=== PATIENT | female | born 1945 | race African-American/Black ===

== ENCOUNTER 2018-08-26 11:07 | Emergency (ER) | END 2018-08-26 12:44 | disposition home or self-care (01) ==

== ENCOUNTER 2018-12-18 03:24 | Observation (INO) | payer MEDICARE, OTHER ==
[~2018-12-18] VITALS: Ht 162.6 cm; Wt 82.0 kg
[2018-12-18] VITALS (8 sets, daily range): BP systolic 121–140; BP diastolic 67–79; PULSE 85–94; RESP 18; Ht 162.6 cm; Wt 82.0 kg
[~2018-12-18 03:24] MED LIST: DICL100G37 TOP; KETO10TA PO
--- NOTE | 2018-12-18 03:32 | ERD ---
ER Documentation Chief Complaint Chief Complaint HPI 73-year-old female brought in for chest pain radiating to left arm, ongoing for the last 4 hours prior to arrival. Pain is constant, is nonexertional, she denies shortness of breath, she has not had leg swelling or hemoptysis. She has no history of DVT or PE. She denies numbness. She has a history of diabetes. ROS All systems reviewed and are negative except as per history of present illness. Medications Home Meds Reported Medications Tretinoin* (Tretinoin* Cream) 0.1% - 20 Gm Cream..g., 20 GM TOPICAL DAILY for 30 Days 12/18/18 Cyclosporine (RESTASIS) 1 Each Droperette, 1 DROP BOTH EYES DAILY for 90 Days, #180 12/18/18 Insulin Degludec (Tresiba Flextouch U-100) 100 Unit/1 Ml Insuln.pen, 50 UNITS SQ DAILY for 30 Days 12/18/18 Liraglutide (Victoza 3-Shaka) 0.6 Mg/0.1 Ml Pen.injctr, 1.2 ML INJ DAILY 12/18/18 Salmeterol Xinaf/Fluticasone* (Advair*) 250-50 Diskus Inhaler, INH for 90 Days, #180 12/18/18 Montelukast Sodium* (Montelukast Sodium*) 10 Mg Tablet, 10 MG PO DAILY for 30 Days, #30 12/18/18 Insulin Lispro (Humalog Kwikpen U-100) 100 Unit/1 Ml Insuln.pen, 22 UNITS SQ TID for 68 Days 12/18/18 Atorvastatin (Atorvastatin) 10 Mg Tablet, 10 MG PO QAM for 90 Days, #90 12/18/18 Glimepiride* (Glimepiride*) 2 Mg Tablet, 2 MG PO DAILY for 90 Days, #90 12/18/18 Metoprolol Tartrate* (Lopressor*) 50 Mg Tab, 50 MG PO BID for 90 Days, #180 12/18/18 Discontinued Scripts Ketorolac Tromethamine* (Ketorolac Tromethamine*) 10 Mg Tablet, 10 MG PO TID, #15 TAB Prov:MELISSA LEOS PA-C 08/26/18 Diclofenac Sodium* (Voltaren* Gel) 1% -100 Gm Gel, 2 GM TOP TID, #1 TUB Prov:MELISSA LEOS PA-C 08/26/18 Allergies Allergies: Coded Allergies: codeine (Unverified Allergy, Severe, hives; sob, 12/18/18) Sulfa (Sulfonamide Antibiotics) (Unverified Allergy, Unknown, hives, 12/18/18) Tetanus Vaccines and Toxoid (Unverified Allergy, Unknown, hives, 12/18/18) azithromycin (Unverified Allergy, Unknown, hives, 12/18/18) cortisone (Unverified Allergy, Unknown, hives, 12/18/18) PMhx/Soc History of Surgery: Yes (Carpal tunnel sx) Hx Neurological Disorder: Yes (Fibromyalgia) Hx Miscellaneous Medical Probl: Yes (DM,RSD,Sciatica,Fibromyalgia) Hx Alcohol Use: No Hx Substance Use: No Hx Tobacco Use: No Physical Exam Vitals Vital Signs Date Temp Pulse Resp B/P (MAP) Pulse Ox O2 O2 Flow FiO2 Time Delivery Rate 12/18/18 98.6 102 14 133/70 98 04:02 (91) Physical Exam Const: Well-appearing, elderly appearing female. Head: Atraumatic Eyes: Normal Conjunctiva ENT: Normal External Ears, Nose and Mouth. Neck: Full range of motion. No meningismus. Resp: Clear to auscultation bilaterally Cardio: Regular rate and rhythm, no murmurs Abd: Soft, non tender, non distended. Normal bowel sounds Skin: No petechiae or rashes Back: No midline or flank tenderness Ext: No cyanosis, or edema Neur: Awake and alert Psych: Normal Mood and Affect Result Diagram: 12/18/18 0338 12/18/18 0338 Results 24 hrs Laboratory Tests Test 12/18/18 03:38 White Blood Count 5.2 10^3/ul Red Blood Count 5.56 10^6/ul Hemoglobin 12.3 g/dl Hematocrit 39.4 % Mean Corpuscular Volume 70.9 fl Mean Corpuscular Hemoglobin 22.1 pg Mean Corpuscular Hemoglobin Concent 31.2 g/dl Red Cell Distribution Width 13.9 % Platelet Count 141 10^3/UL Mean Platelet Volume 12.1 fl Immature Granulocytes % 0.200 % Neutrophils % % Lymphocytes % % Monocytes % % Eosinophils % % Basophils % % Nucleated Red Blood Cells % 0.0 /100WBC Immature Granulocytes # 0.010 10^3/ul Neutrophils # 10^3/ul Lymphocytes # 10^3/ul Monocytes # 10^3/ul Eosinophils # 10^3/ul Basophils # 10^3/ul Nucleated Red Blood Cells # 10^3/ul Prothrombin Time 11.7 Sec Prothrombin Time Ratio 0.9 INR International Normalized Ratio 0.85 Sodium Level 142 mmol/L Potassium Level 3.9 mmol/L Chloride Level 108 mmol/L Carbon Dioxide Level 25 mmol/L Anion Gap 9 Blood Urea Nitrogen 12 mg/dl Creatinine 0.77 mg/dl Est Glomerular Filtrat Rate mL/min mL/min Glucose Level 344 mg/dl Calcium Level 10.3 mg/dl Total Bilirubin 0.2 mg/dl Direct Bilirubin 0.00 mg/dl Indirect Bilirubin 0.2 mg/dl Aspartate Amino Transf (AST/SGOT) 48 IU/L Alanine Aminotransferase (ALT/SGPT) 68 IU/L Alkaline Phosphatase 198 IU/L Troponin I < 0.012 ng/ml B-Type Natriuretic Peptide 35 PG/ML Total Protein 7.7 g/dl Albumin 4.2 g/dl Globulin 3.50 g/dl Albumin/Globulin Ratio 1.20 Lipase 214 U/L Current Medications Medications Dose Sig/Nuha Start Time Status Last (Trade) Ordered Route PRN Stop Time Admin Dose Reason Admin Morphine 4 mg ONCE STAT 12/18/18 DC Sulfate IV 05:04 (morphine) 12/18/18 05:05 Ondansetron 4 mg ONCE STAT 12/18/18 DC HCl (Zofran IV 05:04 Inj) 12/18/18 05:05 Procedures/MDM This 73-year-old female presents for evaluation of chest pain. Patient was given aspirin, 325 mg, as well as nitroglycerin in the field. She was given morphine and Zofran in the ED, her EKG does not show any evidence of acute ischemia, troponin was negative, her chest x-ray was unremarkable, given her age and risk factors, she will be admitted to telemetry observation for further workup. Discussed case with Dr. Cheatham, patient will be admitted to Dr. Baeza EKG: Rate/Rhythm: Sinus tachycardia QRS, ST, T-waves: No changes consistent w/ acute ischemia Impression: No evidence of ischemia or arrhythmia Departure Diagnosis: Primary Impression: Chest pain Chest pain type: unspecified Qualified Codes: R07.9 - Chest pain, unspecified Condition: Stable ZACK DODSON MD Dec 18, 2018 03:32
[2018-12-18] MEDS ORDERED: ONDANSETRON 4 MG INJ IV STA ×2 (05:04→06:51)
[2018-12-18] MEDS ORDERED: morphine 4 MG/ML VIAL IV STA (05:04)
[2018-12-18] MEDS ORDERED: METO-429 PO (05:13)
[2018-12-18] MEDS ORDERED: CYCL1DRO BOTH EYES (05:13)
[2018-12-18] MEDS ORDERED: LIRA0.6P2 INJ (05:13)
[2018-12-18] MEDS ORDERED: MONT10TA24 PO (05:13)
[2018-12-18] MEDS ORDERED: GLIM2TAB PO (05:13)
[2018-12-18] MEDS ORDERED: ADV25050 INH (05:13)
[2018-12-18] MEDS ORDERED: INSU100I31 SQ (05:13)
[2018-12-18] MEDS ORDERED: INSU100I12 SQ (05:13)
[2018-12-18] MEDS ORDERED: TRET20CR14 TOPICAL (05:13)
[2018-12-18] MEDS ORDERED: ATOR10TA65 PO (05:13)
[2018-12-18] MEDS ORDERED: morphine 2 MG INJ IV STA (06:51)
--- NOTE | 2018-12-18 11:48 | HP ---
Date/Time of Note Date/Time of Note DATE: 12/18/18 TIME: 11:48 Assessment/Plan VTE Prophylaxis SCD applied (from Nsg): Yes Pharmacological prophylaxis: LMWH Lines/Catheters IV Catheter Type (from Nrsg): Saline Lock Assessment/Plan Hospital Course SUBJECTIVE: Lying in bed comfortably. No chest pain, palpitation, shortness of breath, diaphoresis, nausea, vomiting, diarrhea, fever, chills or other constitutional symptoms. OBJECTIVE: Vital signs-see below PHYSICAL EXAM: Constitutional: Well-developed, adequately built -[place] female, lying in bed comfortably. Psych: nl mood/affect, no complaints Head: atraumatic, normocephalic Eyes: nl conjunctiva, nl sclera ENMT: mucosa pink and moist, nl external ears & nose Neck: non-tender, supple Respiratory: clear to auscultation, normal air movement Cardiovascular: nl pulses, regular rate and rhythm Gastrointestinal: non-tender, soft, bowel sounds active in all 4 quadrants. Musculoskeletal/extremities: nl extremities to inspection, motor strength equal bilaterally, no focal deficit. Normal pulses,no cyanosis, no edema. Neurological: Alert oriented 3,nl speech, nl strength Skin: nl turgor ASSESSMENT/PLAN: 73-year-old AA female w/CAD/stent, DMII, dyslipidemia, here with chest pain radiating to left arm, acid reflux, dizziness woke her up from bed in the morning. 1. Chest pain w/radiation/dizziness/ Acid reflux -Patient symptomatology is also concerning for GI etiology of chest discomfort. However, in light of her comorbidities, we will do a complete ACS workup with 3 sets of troponin, repeat EKG and a 2D echocardiogram. We will also consult cardiology. -Aspirin prophylaxis, PRN nitroglycerin, H2 blockers. -Obtain carotid venous duplex in light of dizziness reported. 2. Coronary artery disease, reported history of stent. -Aspirin/statin, resume beta-blockers 3. Hypertension -Resume beta-blockers 4. Dyslipidemia -On statin 5. Obesity with BMI 31 -Weight reduction advised. Follow-up lipid panel and A1c 6. Type 2 diabetes -Patient with hyperglycemia. Will start Accu-Cheks/ISS/pre-meal/Lantus insulin. -Follow-up A1c 7. Microcytic indicis with stable H&H -Obtain iron/ferritin panel. DVT prophylaxis: Lovenox PUD prophylaxis: H2 blockers CODE STATUS: Full code Diet: Carbohydrate controlled/low-cholesterol diet. Rest of the management depend on hospital course. Approximately 60 m spent on this history and physical. Patient was seen in collaboration with . Result Diagram: 12/18/18 0338 12/18/18 0338 Results 24hrs Laboratory Tests Test 12/18/18 03:38 12/18/18 09:19 White Blood Count 5.2 Red Blood Count 5.56 H Hemoglobin 12.3 Hematocrit 39.4 Mean Corpuscular Volume 70.9 L Mean Corpuscular Hemoglobin 22.1 L Mean Corpuscular Hemoglobin Concent 31.2 L Red Cell Distribution Width 13.9 Platelet Count 141 Mean Platelet Volume 12.1 H Immature Granulocytes % 0.200 Neutrophils % 35.2 L Lymphocytes % 52.1 H Monocytes % 8.8 Eosinophils % 2.9 Basophils % 0.8 Nucleated Red Blood Cells % 0.0 Immature Granulocytes # 0.010 Neutrophils # 1.8 Lymphocytes # 2.7 Monocytes # 0.5 Eosinophils # 0.2 Basophils # 0.0 Nucleated Red Blood Cells # 0.0 Prothrombin Time 11.7 L Prothrombin Time Ratio 0.9 INR International Normalized Ratio 0.85 Sodium Level 142 Potassium Level 3.9 Chloride Level 108 Carbon Dioxide Level 25 Anion Gap 9 Blood Urea Nitrogen 12 Creatinine 0.77 Est Glomerular Filtrat Rate mL/min Glucose Level 344 H Calcium Level 10.3 H Total Bilirubin 0.2 Direct Bilirubin 0.00 Indirect Bilirubin 0.2 Aspartate Amino Transf (AST/SGOT) 48 H Alanine Aminotransferase (ALT/SGPT) 68 Alkaline Phosphatase 198 H Troponin I < 0.012 B-Type Natriuretic Peptide 35 Total Protein 7.7 Albumin 4.2 Globulin 3.50 H Albumin/Globulin Ratio 1.20 Lipase 214 Bedside Glucose 255 H HPI/ROS Admit Date/Time Admit Date/Time Dec 18, 2018 at 04:57 Hx of Present Illness 73-year-old -[place] male with a history of dyslipidemia, coronary artery disease, status post stent, type 2 diabetes, asthma, was brought in by EMS to the emergency room with chest pain radiating to left associated with dizziness, acid reflux, nausea and urge to have a bowel movement. Apparently, patient symptoms started at night. According to patient, she had chicken Alvaro for dinner and did not eat anything spicy. Patient denied loss of consciousness, speech difficulties, vision changes, focal deficit, numbness, tingling, vomiting, fever, chills or other constitutional symptoms. In the ER, patient was noted with stable labs except for blood glucose 344, mildly elevated AST 48, alkaline phosphatase 198. Initial troponin negative. EKG sinus tach 110, with no ST or T wave changes. Patient was given morphine sulfate 2 mg in the emergency room. She was also given a dose of Zofran. Her symptoms completely resolved. ROS A 12 point review of system was assessed and is negative other than what is mentioned in the HPI PMH/Family/Social Past Medical History See HPI Coded Allergies: codeine (Unverified Allergy, Severe, hives; sob, 12/18/18) Sulfa (Sulfonamide Antibiotics) (Unverified Allergy, Unknown, hives, 12/18/18) Tetanus Vaccines and Toxoid (Unverified Allergy, Unknown, hives, 12/18/18) azithromycin (Unverified Allergy, Unknown, hives, 12/18/18) cortisone (Unverified Allergy, Unknown, hives, 12/18/18) Past Surgical History See HPI Social History Denied history of alcohol, smoking or illicit drug use. Smoking Status: Never smoker Exam/Review of Systems Vital Signs Vitals Vital Signs Date Temp Pulse Resp B/P (MAP) Pulse Ox O2 O2 Flow FiO2 Time Delivery Rate 12/18/18 93 10:39 12/18/18 98.1 18 132/67 95 Room Air 10:37 (88) SANTY ANNAD NP Dec 18, 2018 11:48
[2018-12-18] MEDS ORDERED: ACETAMINOPHEN 325 MG TAB PO PRN (12:00)
[2018-12-18] MEDS ORDERED: NACL 0.9% 3 ML SYG IV SCH (12:00)
[2018-12-18] MEDS ORDERED: DOCUSATE SODIUM 100 MG CAP PO PRN (12:00)
[2018-12-18] MEDS ORDERED: ONDANSETRON 4 MG INJ IV PRN (12:00)
[2018-12-18] MEDS ORDERED: NITROGLYCERIN (SL) 0.4 MG TAB SL PRN (12:00)
[2018-12-18] MEDS ORDERED: morphine 2 MG INJ IV PRN (12:00)
[2018-12-18] MEDS ORDERED: DIPHENHYDRAMINE 50 MG CAP PO PRN (12:30)
[2018-12-18] MEDS ORDERED: ALBUTEROL 0.083% (NEB) 2.5 MG/3 ML AMP HHN PRN (13:00)
[2018-12-18] MEDS ORDERED: GLUCOSE GEL 15 GRAM TUBE PO PRN ×2 (13:30)
[2018-12-18] MEDS ORDERED: GLUCAGON 1 MG INJ IM PRN (13:30)
[2018-12-18] MEDS ORDERED: GLUCOSE GEL 15 GRAM TUBE BUCCAL PRN (13:30)
[2018-12-18] MEDS ORDERED: DEXTROSE 50% 50 ML SYRINGE IV PRN ×2 (13:30)
[2018-12-18] MEDS: METOPROLOL 50 MG TAB PO SCH ×2 (13:51→21:03)
[2018-12-18] MEDS: FAMOTIDINE 20 MG TAB PO SCH (13:51)
[2018-12-18] MEDS: ATORVASTATIN 10 MG TAB PO SCH (13:51)
[2018-12-18] MEDS: ASPIRIN 81 MG TAB PO SCH (13:51)
[2018-12-18] MEDS: CYCLOSPORINE 0.05% OPH DROPERETTE BOTH EYES SCH (13:58)
[2018-12-18] MEDS: FLUTICASONE/VILANTEROL 200-25 INH DEVICE INH SCH (14:00)
[2018-12-18] MEDS ORDERED: INSULIN GLARGINE [LANTus] (100 UNITS/ML) SYG SC SCH (14:00)
--- NOTE | 2018-12-18 14:05 | RADRPT ---
Echocardiogram Report Patient Name: DIDIER AGUILARPatient ID: [id number] : 1945 (73y 11m)Study Date: 12/18/2018 12:00:58 PM Gender: FAccession #: [id number] Tech: Christine [facility] Location: 521 Ref.Physician: SANTY ANAND Height(Cm): BSA: Weight(Kg): Quality: AdequateAccount #: Procedures: Echocardiographic Report: Transthoracic echocardiogram with complete 2D, M-Mode, and doppler examination. Indications: Chest Pain. Measurements: 2D/M Mode Doppler Measurement Value Normal Range Measurement Value Normal Range LVIDd 2D 3.5 [ 3.8 - 5.2 ] cm AV Peak Samy 1.4 [ 100.0 - 170.0 ] cm/sec LVIDs 2D 2.2 [ 2.2 - 3.5 ] cm AV Peak PG 8.0 [ 2.0 - 9.0 ] mmHg LVPWd 2D 1.0 [ 0.6 - 0.9 ] cm LVOT Peak Samy 1.3 [ 70.0 - 110.0 ] cm/sec IVSd 2D 1.6 [ 0.6 - 0.9 ] cm LVOT Peak PG 7.0 [ 2.0 - 6.0 ] mmHg AoR Diam 2D 2.8 [ 2.3 - 3.1 ] cm MV E Peak Samy 0.7 [ 60.0 - 130.0 ] cm/sec EDV 2D 50.2 [ 46.0 - 106.0 ] ml MV A Peak Samy 1.1 [ 100.0 - 120.0 ] cm/sec ESV 2D 15.5 [ 14.0 - 42.0 ] ml MV E/A 0.6 [ 0.8 - 1.5 ] ratio EF 2D 69.1 [ 54.0 - 74.0 ] percent MV Decel Time 176 [ 104 - 258 ] msec LA Dimen 2D 3.1 [ 2.7 - 3.8 ] cm Lat E` Samy 0.1 [ 10.0 - 15.0 ] cm/sec Lateral E/E` 8.7 [ 1.0 - 2.0 ] ratio Med E` Samy 0.1 cm/sec MV E/A 0.6 [ 0.8 - 1.5 ] ratio TR Peak Samy 2.1 [ 100.0 - 280.0 ] cm/sec TR Peak PG 18.0 mmHg RVSP 26.0 [ 10.0 - 36.0 ] mmHg Findings: Left Ventricle: Hyperdynamic left ventricular systolic function. Normal left ventricular cavity size. Severe asymmetric septal hypertrophy. Ejection fraction is visually estimated at 70 %. Tissue Doppler/Mitral Doppler indices are consistent with impaired relaxation (Stage I diastolic dysfunction). Right Ventricle: Normal right ventricular size. Normal right ventricular systolic function. Left Atrium: The left atrium is normal in size. Right Atrium: The right atrium is normal in size. Mitral Valve: Mild mitral leaflet calcification. Mild mitral annular calcification. Trace mitral regurgitation. Aortic Valve: No significant aortic stenosis or insufficiency. Aortic cusps appear mildly calcified. Tricuspid Valve: Normal appearance of the tricuspid valve. Estimated peak PA systolic pressure 26 mmHg. There is trace tricuspid regurgitation. Pericardium: Normal pericardium with no significant pericardial effusion. Aorta: Normal aortic root. IVC: Normal size with poor respiratory collapse consistent with elevated right atrial pressure. Conclusions: Hyperdynamic left ventricular systolic function. Normal left ventricular cavity size. Severe asymmetric septal hypertrophy. Ejection fraction is visually estimated at 70 %. Tissue Doppler/Mitral Doppler indices are consistent with impaired relaxation (Stage I diastolic dysfunction). Normal size with poor respiratory collapse consistent with elevated right atrial pressure. Electronically Signed By: Demarco Sneed 2018-12-18 14:05:12 PST
--- NOTE | 2018-12-18 14:28 | CONS ---
Assessment/Plan Assessment/Plan Hospital Course (Demo Recall) atypical chest pain EKG no ST changes Echo normal wall motion Troponin negative x 2 possibly MSK component as some reproducible chest pain on palpation monitor overnight if no recurrent sx would recommend outpatient follow up Consultation Date/Type/Reason Admit Date/Time Dec 18, 2018 at 04:57 Date of Consultation: Dec 18, 2018 Type of Consult Cardiology Date/Time of Note DATE: 12/18/18 TIME: 14:23 Hx of Present Illness 73 year old woman with hx of PCI in 2011 and Dm has been experiencing sharp chest pain for several days. On evening of admission awoke with 10/10 sharp pain radiating down arm and leg lasting 4-5 hrs before presentation. Resolved IN ER Has not had any symptoms while walking recently. Constitutional: no complaints, improved Cardiovascular: chest pain (as per HPI) Gastrointestinal: no complaints Past Medical History Home Meds Reported Medications Tretinoin* (Tretinoin* Cream) 0.1% - 20 Gm Cream..g., 20 GM TOPICAL DAILY for 30 Days 12/18/18 Cyclosporine (RESTASIS) 1 Each Droperette, 1 DROP BOTH EYES DAILY for 90 Days, # 180 12/18/18 Insulin Degludec (Tresiba Flextouch U-100) 100 Unit/1 Ml Insuln.pen, 50 UNITS SQ DAILY for 30 Days 12/18/18 Liraglutide (Victoza 3-Shaka) 0.6 Mg/0.1 Ml Pen.injctr, 1.2 ML INJ DAILY 12/18/18 Salmeterol Xinaf/Fluticasone* (Advair*) 250-50 Diskus Inhaler, INH for 90 Days, #180 12/18/18 Montelukast Sodium* (Montelukast Sodium*) 10 Mg Tablet, 10 MG PO DAILY for 30 Days, #30 12/18/18 Insulin Lispro (Humalog Kwikpen U-100) 100 Unit/1 Ml Insuln.pen, 22 UNITS SQ TID for 68 Days 12/18/18 Atorvastatin (Atorvastatin) 10 Mg Tablet, 10 MG PO QAM for 90 Days, #90 12/18/18 Glimepiride* (Glimepiride*) 2 Mg Tablet, 2 MG PO DAILY for 90 Days, #90 12/18/18 Metoprolol Tartrate* (Lopressor*) 50 Mg Tab, 50 MG PO BID for 90 Days, #180 12/18/18 Discontinued Scripts Ketorolac Tromethamine* (Ketorolac Tromethamine*) 10 Mg Tablet, 10 MG PO TID, #15 TAB Prov:MELISSA LEOS PA-C 08/26/18 Diclofenac Sodium* (Voltaren* Gel) 1% -100 Gm Gel, 2 GM TOP TID, #1 TUB Prov:MELISSA LEOS PA-C 08/26/18 Medications Current Medications IV Flush (NS 3 ml) 3 ml PER PROTOCOL IV ; Start 12/18/18 at 12:00 Ondansetron HCl (Zofran Inj) 4 mg Q6H PRN IV NAUSEA/VOMITING; Start 12/18/18 at 12:00 Acetaminophen (Tylenol Tab) 650 mg Q6H PRN PO .PAIN 1-3 OR TEMP; Start 12/18/18 at 12:00 Morphine Sulfate (morphine) 2 mg Q4H PRN IV .SEVERE PAIN 7-10; Start 12/18/18 a t 12:00 Docusate Sodium (Colace) 100 mg Q12H PRN PO .CONSTIPATION; Start 12/18/18 at 12:00 Famotidine (Pepcid) 20 mg DAILY PO Last administered on 12/18/18at 13:51; Admin Dose 20 MG; Start 12/18/18 at 12:00 Enoxaparin Sodium (Lovenox) 40 mg DAILY SC ; Start 12/19/18 at 09:00 Aspirin (Aspirin) 81 mg DAILY PO Last administered on 12/18/18at 13:51; Admin Dose 81 MG; Start 12/18/18 at 12:00 Nitroglycerin (Nitroglycerin (Sl Tab) 0.4 Mg) 1 tab Q5M PRN SL ANGINA; Start 12/18/18 at 12:00 Diphenhydramine HCl (Benadryl) 50 mg Q6H PRN PO ITCHING Last administered on 12/18/18at 13:51; Admin Dose 50 MG; Start 12/18/18 at 12:30 Atorvastatin Calcium (Lipitor) 10 mg QAM PO Last administered on 12/18/18at 13:51; Admin Dose 10 MG; Start 12/18/18 at 13:00 Cyclosporine (Restasis) 1 drop DAILY BOTH EYES Last administered on 12/18/18at 13:58; Admin Dose 1 DROP; Start 12/18/18 at 14:00 Metoprolol Tartrate (Lopressor) 50 mg BID PO Last administered on 12/18/18at 13:51; Admin Dose 50 MG; Start 12/18/18 at 13:00 Montelukast Sodium (Singulair) 10 mg QHS PO ; Start 12/18/18 at 21:00 Fluticasone/ Vilanterol (Breo Ellipta 200-25 Mcg Inh) 1 inh DAILY INH ; Start 12/18/18 at 14:00 Albuterol (Proventil 0.083% (Neb)) 2.5 mg Q4H RESP THERAPY PRN HHN SHORTNESS OF BREATH; Start 12/18/18 at 13:00 Diagnostic Test (Pha) (Accu-Chek) 1 ea 02 XX ; Start 12/19/18 at 02:00 Insulin Glargine (Lantus) 25 units DAILY@0800 SC ; Start 12/18/18 at 14:00 Insulin Aspart (Novolog Insulin Pen) 8 unit WITH MEALS SC ; Start 12/18/18 at 17:55 Insulin Aspart (Novolog Insulin Pen) NOVOLOG *MILD* ALGORITHM WITH MEALS BEDTIME SC ; Start 12/18/18 at 17:55 Miscellaneous Information 1 ea NOTE XX ; Start 12/18/18 at 13:30 Glucose (Glutose) 15 gm Q15M PRN PO DECREASED GLUCOSE; Start 12/18/18 at 13:30 Glucose (Glutose) 22.5 gm Q15M PRN PO DECREASED GLUCOSE; Start 12/18/18 at 13:30 Dextrose (D50w Syringe) 25 ml Q15M PRN IV DECREASED GLUCOSE; Start 12/18/18 at 13:30 Dextrose (D50w Syringe) 50 ml Q15M PRN IV DECREASED GLUCOSE; Start 12/18/18 at 13:30 Glucagon (Glucagen) 1 mg Q15M PRN IM DECREASED GLUCOSE; Start 12/18/18 at 13:30 Glucose (Glutose) 15 gm Q15M PRN BUCCAL DECREASED GLUCOSE; Start 12/18/18 at 13:30 Allergies: Coded Allergies: codeine (Unverified Allergy, Severe, hives; sob, 12/18/18) Sulfa (Sulfonamide Antibiotics) (Unverified Allergy, Unknown, hives, 2/15/19) Tetanus Vaccines and Toxoid (Unverified Allergy, Unknown, hives, 12/18/18) azithromycin (Unverified Allergy, Unknown, hives, 12/18/18) cortisone (Unverified Allergy, Unknown, hives, 12/18/18) Social History Smoking Status: Never smoker Exam/Review of Systems Exam Vitals Vital Signs Date Temp Pulse Resp B/P (MAP) Pulse Ox O2 O2 Flow FiO2 Time Delivery Rate 12/18/18 92 13:04 12/18/18 98.1 18 132/67 95 Room Air 10:37 (88) Constitutional: alert, oriented Respiratory: clear to auscultation Cardiovascular: regular rate and rhythm (reproducible chest pain on plapation) Gastrointestinal: soft Musculoskeletal: nl extremities to inspection Results Result Diagram: 12/18/18 0338 12/18/18 0338 Results 24hrs Laboratory Tests Test 12/18/18 03:38 12/18/18 09:19 12/18/18 12:09 White Blood Count 5.2 Red Blood Count 5.56 H Hemoglobin 12.3 Hematocrit 39.4 Mean Corpuscular Volume 70.9 L Mean Corpuscular Hemoglobin 22.1 L Mean Corpuscular Hemoglobin Concent 31.2 L Red Cell Distribution Width 13.9 Platelet Count 141 Mean Platelet Volume 12.1 H Immature Granulocytes % 0.200 Neutrophils % 35.2 L Lymphocytes % 52.1 H Monocytes % 8.8 Eosinophils % 2.9 Basophils % 0.8 Nucleated Red Blood Cells % 0.0 Immature Granulocytes # 0.010 Neutrophils # 1.8 Lymphocytes # 2.7 Monocytes # 0.5 Eosinophils # 0.2 Basophils # 0.0 Nucleated Red Blood Cells # 0.0 Prothrombin Time 11.7 L Prothrombin Time Ratio 0.9 INR International Normalized Ratio 0.85 Sodium Level 142 Potassium Level 3.9 Chloride Level 108 Carbon Dioxide Level 25 Anion Gap 9 Blood Urea Nitrogen 12 Creatinine 0.77 Est Glomerular Filtrat Rate mL/min Glucose Level 344 H Calcium Level 10.3 H Total Bilirubin 0.2 Direct Bilirubin 0.00 Indirect Bilirubin 0.2 Aspartate Amino Transf (AST/SGOT) 48 H Alanine Aminotransferase (ALT/SGPT) 68 Alkaline Phosphatase 198 H Troponin I < 0.012 < 0.012 B-Type Natriuretic Peptide 35 Total Protein 7.7 Albumin 4.2 Globulin 3.50 H Albumin/Globulin Ratio 1.20 Lipase 214 Bedside Glucose 255 H Creatine Kinase 78 Creatine Kinase Index 0.5 Creatinine Kinase MB (Mass) 0.42 Medications Medication Current Medications IV Flush (NS 3 ml) 3 ml PER PROTOCOL IV ; Start 12/18/18 at 12:00 Ondansetron HCl (Zofran Inj) 4 mg Q6H PRN IV NAUSEA/VOMITING; Start 12/18/18 at 12:00 Acetaminophen (Tylenol Tab) 650 mg Q6H PRN PO .PAIN 1-3 OR TEMP; Start 12/18/18 at 12:00 Morphine Sulfate (morphine) 2 mg Q4H PRN IV .SEVERE PAIN 7-10; Start 12/18/18 at 12:00 Docusate Sodium (Colace) 100 mg Q12H PRN PO .CONSTIPATION; Start 12/18/18 at 12:00 Famotidine (Pepcid) 20 mg DAILY PO Last administered on 12/18/18at 13:51; Admin Dose 20 MG; Start 12/18/18 at 12:00 Enoxaparin Sodium (Lovenox) 40 mg DAILY SC ; Start 12/19/18 at 09:00 Aspirin (Aspirin) 81 mg DAILY PO Last administered on 12/18/18 13:51; Admin Dose 81 MG; Start 12/18/18 at 12:00 Nitroglycerin (Nitroglycerin (Sl Tab) 0.4 Mg) 1 tab Q5M PRN SL ANGINA; Start 12/18/18 at 12:00 Diphenhydramine HCl (Benadryl) 50 mg Q6H PRN PO ITCHING Last administered on 12/18/18 13:51; Admin Dose 50 MG; Start 12/18/18 at 12:30 Atorvastatin Calcium (Lipitor) 10 mg QAM PO Last administered on 12/18/18 13:51; Admin Dose 10 MG; Start 12/18/18 at 13:00 Cyclosporine (Restasis) 1 drop DAILY BOTH EYES Last administered on 12/18/18 13:58; Admin Dose 1 DROP; Start 12/18/18 at 14:00 Metoprolol Tartrate (Lopressor) 50 mg BID PO Last administered on 12/18/18 13:51; Admin Dose 50 MG; Start 12/18/18 at 13:00 Montelukast Sodium (Singulair) 10 mg QHS PO ; Start 12/18/18 at 21:00 Fluticasone/ Vilanterol (Breo Ellipta 200-25 Mcg Inh) 1 inh DAILY INH ; Start 12/18/18 at 14:00 Albuterol (Proventil 0.083% (Neb)) 2.5 mg Q4H RESP THERAPY PRN HHN SHORTNESS OF BREATH; Start 12/18/18 at 13:00 Diagnostic Test (Pha) (Accu-Chek) 1 ea 02 XX ; Start 12/19/18 at 02:00 Insulin Glargine (Lantus) 25 units DAILY@0800 SC ; Start 12/18/18 at 14:00 Insulin Aspart (Novolog Insulin Pen) 8 unit WITH MEALS SC ; Start 12/18/18 at 17:55 Insulin Aspart (Novolog Insulin Pen) NOVOLOG *MILD* ALGORITHM WITH MEALS BEDTIME SC ; Start 12/18/18 at 17:55 Miscellaneous Information 1 ea NOTE XX ; Start 12/18/18 at 13:30 Glucose (Glutose) 15 gm Q15M PRN PO DECREASED GLUCOSE; Start 12/18/18 at 13:30 Glucose (Glutose) 22.5 gm Q15M PRN PO DECREASED GLUCOSE; Start 12/18/18 at 13:30 Dextrose (D50w Syringe) 25 ml Q15M PRN IV DECREASED GLUCOSE; Start 12/18/18 at 13:30 Dextrose (D50w Syringe) 50 ml Q15M PRN IV DECREASED GLUCOSE; Start 12/18/18 at 13:30 Glucagon (Glucagen) 1 mg Q15M PRN IM DECREASED GLUCOSE; Start 12/18/18 at 13:30 Glucose (Glutose) 15 gm Q15M PRN BUCCAL DECREASED GLUCOSE; Start 12/18/18 at 13:30 CARLA MANZO MD Dec 18, 2018 14:28
[2018-12-18] MEDS: INSULIN ASPART [NOVOLOG] 3 ML PEN SC SCH ×2 (17:54→21:00)
[2018-12-18] MEDS ORDERED: INSULIN ASPART [NOVOLOG] 3 ML PEN SC SCH (17:55)
[2018-12-18] MEDS ORDERED: MONTELUKAST 10 MG TAB PO SCH (21:00)
[2018-12-19] VITALS (7 sets, daily range): BP systolic 121–137; BP diastolic 67–82; PULSE 74–91; RESP 16–18
[2018-12-19] MEDS ORDERED: ACCU-CHEK XX SCH (02:00)
[2018-12-19] MEDS: FLUTICASONE/VILANTEROL 200-25 INH DEVICE INH SCH (08:21)
[2018-12-19] MEDS: ASPIRIN 81 MG TAB PO SCH (08:21)
[2018-12-19] MEDS: ATORVASTATIN 10 MG TAB PO SCH (08:21)
[2018-12-19] MEDS: FAMOTIDINE 20 MG TAB PO SCH (08:21)
[2018-12-19] MEDS: METOPROLOL 50 MG TAB PO SCH (08:30)
[2018-12-19] MEDS: CYCLOSPORINE 0.05% OPH DROPERETTE BOTH EYES SCH (09:00)
[2018-12-19] MEDS ORDERED: ENOXAPARIN 40 MG/0.4 ML SYG SC SCH (09:00)
[2018-12-19] MEDS: INSULIN LISPRO 100 UNIT/ML XX SCH ×2 (09:35→13:12)
[2018-12-19] MEDS ORDERED: AMIODARONE 150MG/D5W BOLUS 100 ML IV ONE (10:30)
[2018-12-19] MEDS ORDERED: INSU100I12 SQ (11:30)
[2018-12-19] MEDS ORDERED: FAMO20TA18 PO (11:30)
--- NOTE | 2018-12-19 11:30 | PDOCDIS ---
Discharge Instructions CONDITION [id number] Patient Condition: [id number] Good HOME CARE INSTRUCTIONS: [id number] Special Diet: [id number] Diabetic ACTIVITY: [id number] Activity Restrictions: [id number] No Restrictions FOLLOW UP/APPOINTMENTS Follow-up Plan FOLLOW UP WITH YOUR PRIMARY CARE PHYSICIAN IN 1-2 WEEKS GERALDO MORALES Dec 19, 2018 11:30
--- NOTE | 2018-12-19 11:36 | DS ---
Date/Time of Note Date/Time of Note DATE: 12/19/18 TIME: 11:31 Discharge Summary Admission/Discharge Info Admit Date/Time Dec 18, 2018 at 04:57 Discharge Date/Time December 19, 2018 Discharge Diagnosis 1. Chest pain w/radiation/dizziness/ Acid reflux -Etiology likely secondary to PUD, DC with Pepcid -ACS ruled out -Cardiology consultation appreciated -Carotid ultrasound shows no significant occlusion 2. Coronary artery disease, reported history of stent. -Continue home aspirin/statin and beta-blockers 3. Hypertension -Continue beta-blockers 4. Dyslipidemia -On statin 5. Obesity with BMI 31 -Weight reduction advised 6. Type 2 diabetes -Continue home meds 7. Microcytosis -Hemoglobin is stable, TIBC is within normal limits Patient Condition: Good Hospital Course Patient is a 73-year-old female with history of obesity, hypertension, diabetes, coronary disease who presents with chest pain as well as dizziness. ACS was ruled out and symptoms were more consistent with peptic ulcer disease, patient was started on Pepcid and patient symptoms did improve. Patient was seen by cardiology and no further diagnostics were indicated. Patient stable for DC, the day of discharge patient's vitals, labs and physical exam are stable. Home Meds Active Scripts Famotidine* (Famotidine*) 20 Mg Tablet, 20 MG PO DAILY for 30 Days, #30 TAB Prov:CONI MORALESMartha 12/19/18 Insulin Lispro (Humalog Kwikpen U-100) 100 Unit/1 Ml Insuln.pen, 22 UNITS SQ TID, #1 VIAL Prov:CARMENGERALDO 12/19/18 Reported Medications Tretinoin* (Tretinoin* Cream) 0.1% - 20 Gm Cream..g., 20 GM TOPICAL DAILY for 30 Days 12/18/18 Cyclosporine (RESTASIS) 1 Each Droperette, 1 DROP BOTH EYES DAILY for 90 Days, #180 12/18/18 Insulin Degludec (Tresiba Flextouch U-100) 100 Unit/1 Ml Insuln.pen, 50 UNITS SQ DAILY for 30 Days 12/18/18 Liraglutide (Victoza 3-Shaka) 0.6 Mg/0.1 Ml Pen.injctr, 1.2 ML INJ DAILY 12/18/18 Salmeterol Xinaf/Fluticasone* (Advair*) 250-50 Diskus Inhaler, INH for 90 Days, #180 12/18/18 Montelukast Sodium* (Montelukast Sodium*) 10 Mg Tablet, 10 MG PO DAILY for 30 Days, #30 12/18/18 Atorvastatin (Atorvastatin) 10 Mg Tablet, 10 MG PO QAM for 90 Days, #90 12/18/18 Glimepiride* (Glimepiride*) 2 Mg Tablet, 2 MG PO DAILY for 90 Days, #90 12/18/18 Metoprolol Tartrate* (Lopressor*) 50 Mg Tab, 50 MG PO BID for 90 Days, #180 12/18/18 Discontinued Scripts Ketorolac Tromethamine* (Ketorolac Tromethamine*) 10 Mg Tablet, 10 MG PO TID, #15 TAB Prov:MELISSA LEOS PA-C 08/26/18 Diclofenac Sodium* (Voltaren* Gel) 1% -100 Gm Gel, 2 GM TOP TID, #1 TUB Prov:MELISSA LEOS PA-C 08/26/18 Follow-up Plan FOLLOW UP WITH YOUR PRIMARY CARE PHYSICIAN IN 1-2 WEEKS Primary Care Provider Not On Staff Doctor Time spent on discharge: > 30 minutes GERALDO MORALES Dec 19, 2018 11:36
[2018-12-19] MEDS ORDERED: INSULIN DEGLUDEC 100 UNIT/ML SC SCH (21:00)
== END 2018-12-19 13:51 | disposition home or self-care (01) ==
LOC: E/R 03:24 → TEL 04:57 → CANRESERV 05:09 → TEL 10:50
PROVIDERS: ADMIT Hospitalist; ATTEND Internal Medicine
DX: R07.9 Chest pain, unspecified (principal); R42 Dizziness and giddiness; E11.9 Type 2 diabetes mellitus without complications; Z79.4 Long term (current) use of insulin; I25.10 Atherosclerotic heart disease of native coronary artery without angina pectoris; Z95.5 Presence of coronary angioplasty implant and graft; I10 Essential (primary) hypertension; E78.5 Hyperlipidemia, unspecified; E66.9 Obesity, unspecified; Z68.31 Body mass index [BMI] 31.0-31.9, adult; K21.9 Gastro-esophageal reflux disease without esophagitis
CPT/HCPCS: 36415; 71045; 80053; 80061; 82550; 82553; 82728; 82962; 83036; 83540; 83690; 83735; 83880; 84100; 84443; 84484; 85025; 85610; 93005; 93306; 93880; 99285; G0378; J1650; J1815; J2270; J2405

== ENCOUNTER 2019-02-05 11:44 | Emergency (ER) | payer MEDICARE, MEDICAID ==
[~2019-02-05] VITALS: Ht 170.2 cm; Wt 81.8 kg
[~2019-02-05 11:44] MED LIST changes: +ADV25050 INH; +ATOR10TA65 PO; +CYCL1DRO BOTH EYES; -DICL100G37 TOP; +FAMO20TA18 PO; +GLIM2TAB PO; +INSU100I12 SQ; +INSU100I31 SQ; -KETO10TA PO; +LIRA0.6P2 INJ; +METO-429 PO; +MONT10TA24 PO; +TRET20CR14 TOPICAL
[2019-02-05 11:47] VITALS: BP 151/72; PULSE 98; RESP 18; Ht 170.2 cm; Wt 81.8 kg
[2019-02-05] MEDS ORDERED: CEFU500T45 PO (12:29)
[2019-02-05] MEDS ORDERED: OFLO5DRO46 RIGHT EYE (12:29)
[2019-02-05] MEDS ORDERED: D-ME473S2 PO (12:29)
--- NOTE | 2019-02-05 12:32 | ERD ---
ER Documentation Chief Complaint Chief Complaint cough & eye infection dx:bronchitis x4 days HPI 74-year-old female presents with productive cough for last week. She received a prescription for Zithromax from her primary doctor although she developed a rash and stopped it. She has productive yellow mucus with occasional blood-tinged with heavy coughing but no significant blood. She denies fevers. She denies chest pain, vomiting, abdominal pain. She also has a complaint of right eye discharge worse in the morning. Denies visual changes, history of trauma. Denies significant pain. Patient has a history of multiple drug allergies. ROS All systems reviewed and are negative except as per history of present illness. Medications Home Meds Active Scripts Ofloxacin* (Ocuflox*) 0.3%-5 Ml Ophth Drops, 1 DROP RIGHT EYE QID for 7 Days, BOTTLE Prov:ERICA UMAÑA MD 02/05/19 Dextromethorphan Hb-Promethazine Hcl* (Promethazine DM* Syrup) 473 Ml Syrup, 5 ML PO Q6 PRN for COUGH for 5 Days, ML Prov:ERICA UMAÑA MD 02/05/19 Cefuroxime Axetil* (Cefuroxime Axetil*) 500 Mg Tablet, 500 MG PO BID for 7 Days, TAB Prov:ERICA UMAÑA MD 02/05/19 Famotidine* (Famotidine*) 20 Mg Tablet, 20 MG PO DAILY for 30 Days, #30 TAB Prov:GERALDO MORALES 12/19/18 Insulin Lispro (Humalog Kwikpen U-100) 100 Unit/1 Ml Insuln.pen, 22 UNITS SQ TID, #1 VIAL Prov:GERALDO MORALES 12/19/18 Reported Medications Tretinoin* (Tretinoin* Cream) 0.1% - 20 Gm Cream..g., 20 GM TOPICAL DAILY for 30 Days 12/18/18 Cyclosporine (RESTASIS) 1 Each Droperette, 1 DROP BOTH EYES DAILY for 90 Days, #180 12/18/18 Insulin Degludec (Tresiba Flextouch U-100) 100 Unit/1 Ml Insuln.pen, 50 UNITS SQ DAILY for 30 Days 12/18/18 Liraglutide (Victoza 3-Shaka) 0.6 Mg/0.1 Ml Pen.injctr, 1.2 ML INJ DAILY 12/18/18 Salmeterol Xinaf/Fluticasone* (Advair*) 250-50 Diskus Inhaler, INH for 90 Days, #180 12/18/18 Montelukast Sodium* (Montelukast Sodium*) 10 Mg Tablet, 10 MG PO DAILY for 30 Days, #30 12/18/18 Atorvastatin (Atorvastatin) 10 Mg Tablet, 10 MG PO QAM for 90 Days, #90 12/18/18 Glimepiride* (Glimepiride*) 2 Mg Tablet, 2 MG PO DAILY for 90 Days, #90 12/18/18 Metoprolol Tartrate* (Lopressor*) 50 Mg Tab, 50 MG PO BID for 90 Days, #180 12/18/18 Allergies Allergies: Coded Allergies: codeine (Unverified Allergy, Severe, hives; sob, 12/18/18) Sulfa (Sulfonamide Antibiotics) (Unverified Allergy, Unknown, hives, 12/18/18) Tetanus Vaccines and Toxoid (Unverified Allergy, Unknown, hives, 12/18/18) azithromycin (Unverified Allergy, Unknown, hives, 12/18/18) cortisone (Unverified Allergy, Unknown, hives, 12/18/18) insulin aspart (Verified Allergy, Unknown, 12/18/18) Uncoded Allergies: lantus (Allergy, Unknown, 12/18/18) PMhx/Soc History of Surgery: Yes Anesthesia Reaction: No Hx Neurological Disorder: No Hx Respiratory Disorders: Yes (Asthma, Bronchitis ) Hx Cardiac Disorders: Yes (Stents, Hyperlipidimia) Hx Psychiatric Problems: No Hx Miscellaneous Medical Probl: No Hx Alcohol Use: No Hx Substance Use: No Hx Tobacco Use: No FmHx Family History: No diabetes, No coronary disease, No other Physical Exam Vitals Vital Signs Date Temp Pulse Resp B/P (MAP) Pulse Ox O2 O2 Flow FiO2 Time Delivery Rate 02/05/19 97.0 98 18 151/72 97 11:47 (98) Physical Exam Const: No acute distress Head: Atraumatic Eyes: Normal Conjunctiva. Mild right eye scleral redness. Eyes Lin extract movements intact. No proptosis. No facial or orbital erythema. ENT: Normal External Ears, Nose and Mouth. Is and oropharynx normal. Neck: Full range of motion. No meningismus. Resp: Clear to auscultation bilaterally Cardio: Regular rate and rhythm, no murmurs Abd: Soft, non tender, non distended. Normal bowel sounds Skin: No petechiae or rashes Back: No midline or flank tenderness Ext: No cyanosis, or edema Neur: Awake and alert Psych: Normal Mood and Affect Procedures/MDM She presents with productive cough for last week. She has no signs of pneumonia, hypoxemia, rest or distress. She has a history signs and symptoms suggestive of conjunctivitis, viral versus bacterial without signs or symptoms to suggest abrasion, visual changes, orbital cellulitis. She will be treated empirically with cefuroxime, ofloxacin eyedrops, promethazine DM, primary care follow-up and return precautions. Patient has no signs or symptoms suggest cardiac chest pain, abdominal pain, additional concerning symptoms. The patient was stable with no new complaints during the ER course. Clinically, there is no current evidence to suggest meningitis, sepsis, acute abdomen, pneumonia, stroke, acute coronary syndrome, pulmonary embolism, aortic dissection or any other emergent condition appearing to require further evaluation or hospitalization. Patient counseled regarding my diagnostic impression and care plan. Prior to discharge all questions answered. Pt agrees with treatment plan and understands strict return precautions. Pt is instructed to follow up with primary care provider within 24-48 hours. Precautionary instructions provided including instructions to return to the ER if not improving or for any worsening or changing symptoms or concerns. Departure Diagnosis: Primary Impression: Conjunctivitis Conjunctivitis type: unspecified Laterality: right Qualified Codes: H10.9 - Unspecified conjunctivitis Additional Impression: Upper respiratory infection URI type: unspecified URI Qualified Codes: J06.9 - Acute upper respiratory infection, unspecified Condition: Stable Patient Instructions: Bronchitis, Antiobiotic Treatment (Adult), Conjunctivitis, Non-Specific Additional Instructions: Recheck with primary doctor or for new or worsening symptoms. ERICA UMAÑA MD Feb 05, 2019 12:32
== END 2019-02-05 12:46 | disposition home or self-care (01) ==
LOC: FTE 11:44
DX: H10.9 Unspecified conjunctivitis (principal); J06.9 Acute upper respiratory infection, unspecified; J45.909 Unspecified asthma, uncomplicated; E11.9 Type 2 diabetes mellitus without complications; Z79.4 Long term (current) use of insulin; Z98.61 Coronary angioplasty status
CPT/HCPCS: 99283

== ENCOUNTER 2019-03-03 14:32 | Emergency (ER) | payer MEDICARE, MEDICAID ==
[~2019-03-03] VITALS: Wt 82.9 kg
[~2019-03-03 14:32] MED LIST changes: +CEFU500T45 PO; +D-ME473S2 PO; +OFLO5DRO46 RIGHT EYE
[2019-03-03 14:53] VITALS: BP 144/76; PULSE 87; RESP 22
--- NOTE | 2019-03-03 16:22 | ERD ---
ER Documentation Chief Complaint Chief Complaint generalized fibromyalgia pain [id number]; no relief w tylenol. HPI 74-year-old female, with history of diabetes and fibromyalgia, presents the emergency department, complaining of 3 weeks with worsening of generalized muscle pain, the patient states that the Tylenol is not helping with the symptoms. She denies fever, no chills, no rashes, no chest pain, no abdominal pain. ROS All systems reviewed and are negative except as per history of present illness. Medications Home Meds Active Scripts Hydroxyzine Hcl* (Hydroxyzine Hcl*) 10 Mg Tablet, 10 MG PO TID PRN for NAUSEA, #15 TAB Prov:MOHSEN TURPIN MD 03/03/19 Tramadol HCl (Tramadol HCl) 50 Mg Tablet, 50 MG PO TID PRN for PAIN, #20 TAB Prov:MOHSEN TURPIN MD 03/03/19 Ofloxacin* (Ocuflox*) 0.3%-5 Ml Ophth Drops, 1 DROP RIGHT EYE QID for 7 Days, BOTTLE Prov:ERICA UMAÑA MD 02/05/19 Dextromethorphan Hb-Promethazine Hcl* (Promethazine DM* Syrup) 473 Ml Syrup, 5 ML PO Q6 PRN for COUGH for 5 Days, ML Prov:ERICA UMAÑA MD 02/05/19 Cefuroxime Axetil* (Cefuroxime Axetil*) 500 Mg Tablet, 500 MG PO BID for 7 Days, TAB Prov:ERICA UMAÑA MD 02/05/19 Famotidine* (Famotidine*) 20 Mg Tablet, 20 MG PO DAILY for 30 Days, #30 TAB Prov:GERALDO MORALES 12/19/18 Insulin Lispro (Humalog Kwikpen U-100) 100 Unit/1 Ml Insuln.pen, 22 UNITS SQ TID, #1 VIAL Prov:GERALDO MORALES 12/19/18 Reported Medications Tretinoin* (Tretinoin* Cream) 0.1% - 20 Gm Cream..g., 20 GM TOPICAL DAILY for 30 Days 12/18/18 Cyclosporine (RESTASIS) 1 Each Droperette, 1 DROP BOTH EYES DAILY for 90 Days, #180 12/18/18 Insulin Degludec (Tresiba Flextouch U-100) 100 Unit/1 Ml Insuln.pen, 50 UNITS SQ DAILY for 30 Days 12/18/18 Liraglutide (Victoza 3-Shaka) 0.6 Mg/0.1 Ml Pen.injctr, 1.2 ML INJ DAILY 12/18/18 Salmeterol Xinaf/Fluticasone* (Advair*) 250-50 Diskus Inhaler, INH for 90 Days, #180 12/18/18 Montelukast Sodium* (Montelukast Sodium*) 10 Mg Tablet, 10 MG PO DAILY for 30 Days, #30 12/18/18 Atorvastatin (Atorvastatin) 10 Mg Tablet, 10 MG PO QAM for 90 Days, #90 12/18/18 Glimepiride* (Glimepiride*) 2 Mg Tablet, 2 MG PO DAILY for 90 Days, #90 12/18/18 Metoprolol Tartrate* (Lopressor*) 50 Mg Tab, 50 MG PO BID for 90 Days, #180 12/18/18 Allergies Allergies: Coded Allergies: codeine (Unverified Allergy, Severe, hives; sob, 03/03/19) Sulfa (Sulfonamide Antibiotics) (Unverified Allergy, Unknown, hives, 03/03/19) Tetanus Vaccines and Toxoid (Unverified Allergy, Unknown, hives, 03/03/19) azithromycin (Unverified Allergy, Unknown, hives, 03/03/19) cortisone (Unverified Allergy, Unknown, hives, 03/03/19) insulin aspart (Verified Allergy, Unknown, 03/03/19) Uncoded Allergies: lantus (Allergy, Unknown, 12/18/18) PMhx/Soc History of Surgery: Yes Anesthesia Reaction: No Hx Neurological Disorder: No Hx Respiratory Disorders: Yes (Asthma, Bronchitis ) Hx Cardiac Disorders: Yes (Stents, Hyperlipidimia) Hx Psychiatric Problems: No Hx Miscellaneous Medical Probl: No Hx Alcohol Use: No Hx Substance Use: No Hx Tobacco Use: No FmHx Family History: No diabetes, No coronary disease Physical Exam Vitals Vital Signs Date Temp Pulse Resp B/P (MAP) Pulse Ox O2 O2 Flow FiO2 Time Delivery Rate 03/03/19 97.3 87 22 144/76 96 14:53 (98) Physical Exam Const: No acute distress Head: Atraumatic Eyes: Normal Conjunctiva ENT: Normal External Ears, Nose and Mouth. Neck: Full range of motion. No meningismus. Resp: Clear to auscultation bilaterally Cardio: Regular rate and rhythm, no murmurs Abd: Soft, non tender, non distended. Normal bowel sounds Skin: No petechiae or rashes Back: No midline or flank tenderness Ext: No cyanosis, or edema Neur: Awake and alert Psych: Normal Mood and Affect Results 24 hrs Current Medications Medications Dose Sig/Nuha Start Time Status Last (Trade) Ordered Route PRN Stop Time Admin Dose Reason Admin Ketorolac 30 mg ONCE STAT 03/03/19 DC 03/03/19 Tromethamine IM 16:28 03/03/19 16:39 (Toradol) 16:30 Procedures/MDM Vital signs stable. Differential diagnosis considered include osteoarthritis, rheumatoid arthritis, reactive arthritis, lupus, thyroid disease. Low suspicion for septic arthritis. During the ED course the patient remained stable, no new complaints. Results and clinical impression discussed with the patient who agrees with management. The patient is stable to be treated outpatient and will be discharged home with a Rx for tramadol, some side effects of prescribed medications (headache, rash, nausea, vomiting, diarrhea, drowsiness, habituation, bleeding, hypertension, interactions with other medications) were reviewed. The patient was informed that the evaluation in the emergency department has been done to rule out an acute emergency, therefore, chronic conditions like malignancy or other diseases have not been evaluated; therefore, the patient was instructed to follow up with the primary care provider in the next 48h. If symptoms persist, worsen or new symptoms develop, then patient should return to the ED immediately. Instructions explained and given directly by me to the patient with a cknowledgment and demonstrated understanding. Disclaimer: Inadvertent spelling and grammatical errors are likely due to EHR/dictation software use and do not reflect on the overall quality of patient care. Also, please note that the electronic time recorded on this note does not necessarily reflect the actual time of the patient encounter. Departure Diagnosis: Primary Impression: Fibromyalgia Condition: Stable Additional Instructions: Thank you very much for allowing us to participate in your care. Your health and safety is our top priority at [facility]. The evaluation in the emergency department has been done to rule out an acute emergency, therefore, chronic conditions like malignancy or other diseases have not been evaluated; therefore, you need to follow up with a primary care provider in the next 48h. If symptoms persist, worsen or new symptoms develop, then patient should return to the ED immediately. Call your primary care doctor TOMORROW for an appointment during the next 2-4 days and bring all the information provided. Have prescriptions filled and follow precisely the directions on the label. If the symptoms get worse and your provider is unavailable, return to the Emergency Department immediately. MOHSEN TURPIN MD March 03, 2019 16:22
[2019-03-03] MEDS ORDERED: KETOROLAC 30 MG INJ IM STA (16:28)
[2019-03-03] MEDS ORDERED: TRAM50TA2 PO (16:46)
[2019-03-03] MEDS ORDERED: HYDR-3029 PO (16:47)
== END 2019-03-03 16:56 | disposition home or self-care (01) ==
LOC: FTE 14:32
DX: M79.7 Fibromyalgia (principal); J45.909 Unspecified asthma, uncomplicated; E11.9 Type 2 diabetes mellitus without complications; Z79.4 Long term (current) use of insulin; Z98.61 Coronary angioplasty status
CPT/HCPCS: 96372; 99284; J1885

== ENCOUNTER 2019-03-26 00:14 | Emergency (ER) | payer MEDICARE, MEDICAID ==
[~2019-03-26] VITALS: Ht 162.6 cm; Wt 83.7 kg
[~2019-03-26 00:14] MED LIST changes: +HYDR-3029 PO; +TRAM50TA2 PO
[2019-03-26 00:22] VITALS: Ht 162.6 cm; Wt 83.7 kg
--- NOTE | 2019-03-26 01:02 | ERD ---
ER Documentation Chief Complaint Chief Complaint TOOK 50UNITS OF HUMALOG BY ACCIDENT AT 11:30P HPI The patient is a 74-year-old female, presenting to the ER because she accidentally took 50 units of Humalog at 11:30 PM instead of her Lantus 50 units. She normally takes Humalog 22 units 3 times daily and Lantus 50 units at bedtime. She felt somewhat dizzy and tingling but did not have any syncope, near syncope episode, denies headache, neck pain, chest pain, dyspnea, abdominal pain, vomiting, dizzy, diarrhea. She does not smoke or drink Past medical history: Diabetes mellitus, dyslipidemia, asthma, hypertension, CAD Past surgical history: Stent PCI ROS All systems reviewed and are negative except as per history of present illness. Medications Home Meds Active Scripts Hydroxyzine Hcl* (Hydroxyzine Hcl*) 10 Mg Tablet, 10 MG PO TID PRN for NAUSEA, #15 TAB Prov:MOHSEN TURPIN MD 03/03/19 Tramadol HCl (Tramadol HCl) 50 Mg Tablet, 50 MG PO TID PRN for PAIN, #20 TAB Prov:MOHSEN TURPIN MD 03/03/19 Ofloxacin* (Ocuflox*) 0.3%-5 Ml Ophth Drops, 1 DROP RIGHT EYE QID for 7 Days, BOTTLE Prov:ERICA UMAÑA MD 02/05/19 Dextromethorphan Hb-Promethazine Hcl* (Promethazine DM* Syrup) 473 Ml Syrup, 5 ML PO Q6 PRN for COUGH for 5 Days, ML Prov:ERICA UMAÑA MD 02/05/19 Cefuroxime Axetil* (Cefuroxime Axetil*) 500 Mg Tablet, 500 MG PO BID for 7 Days, TAB Prov:ERICA UMAÑA MD 02/05/19 Famotidine* (Famotidine*) 20 Mg Tablet, 20 MG PO DAILY for 30 Days, #30 TAB Prov:GERALDO MORALES 12/19/18 Insulin Lispro (Humalog Kwikpen U-100) 100 Unit/1 Ml Insuln.pen, 22 UNITS SQ TID, #1 VIAL Prov:GERALDO MORALES 12/19/18 Reported Medications Tretinoin* (Tretinoin* Cream) 0.1% - 20 Gm Cream..g., 20 GM TOPICAL DAILY for 30 Days 12/18/18 Cyclosporine (RESTASIS) 1 Each Droperette, 1 DROP BOTH EYES DAILY for 90 Days, #180 12/18/18 Insulin Degludec (Tresiba Flextouch U-100) 100 Unit/1 Ml Insuln.pen, 50 UNITS SQ DAILY for 30 Days 12/18/18 Liraglutide (Victoza 3-Shaka) 0.6 Mg/0.1 Ml Pen.injctr, 1.2 ML INJ DAILY 12/18/18 Salmeterol Xinaf/Fluticasone* (Advair*) 250-50 Diskus Inhaler, INH for 90 Days, #180 12/18/18 Montelukast Sodium* (Montelukast Sodium*) 10 Mg Tablet, 10 MG PO DAILY for 30 Days, #30 12/18/18 Atorvastatin (Atorvastatin) 10 Mg Tablet, 10 MG PO QAM for 90 Days, #90 12/18/18 Glimepiride* (Glimepiride*) 2 Mg Tablet, 2 MG PO DAILY for 90 Days, #90 12/18/18 Metoprolol Tartrate* (Lopressor*) 50 Mg Tab, 50 MG PO BID for 90 Days, #180 12/18/18 Allergies Allergies: Coded Allergies: codeine (Unverified Allergy, Severe, hives; sob, 03/03/19) Sulfa (Sulfonamide Antibiotics) (Unverified Allergy, Unknown, hives, 03/03/19) Tetanus Vaccines and Toxoid (Unverified Allergy, Unknown, hives, 03/03/19) azithromycin (Unverified Allergy, Unknown, hives, 03/03/19) cortisone (Unverified Allergy, Unknown, hives, 03/03/19) insulin aspart (Verified Allergy, Unknown, 03/03/19) Uncoded Allergies: lantus (Allergy, Unknown, 12/18/18) PMhx/Soc History of Surgery: Yes Anesthesia Reaction: No Hx Neurological Disorder: No Hx Respiratory Disorders: Yes (Asthma, Bronchitis ) Hx Cardiac Disorders: Yes (Stents, Hyperlipidimia) Hx Psychiatric Problems: No Hx Miscellaneous Medical Probl: No Hx Alcohol Use: No Hx Substance Use: No Hx Tobacco Use: No Physical Exam Vitals Vital Signs Date Temp Pulse Resp B/P (MAP) Pulse Ox O2 O2 Flow FiO2 Time Delivery Rate 03/26/19 91 20 147/67 94 Room Air 04:29 (93) 03/26/19 89 22 151/80 98 Room Air 01:57 (103) 03/26/19 96.3 99 19 189/86 97 00:22 (120) Physical Exam Const: No acute distress. Head: Atraumatic. Eyes: Normal Conjunctiva. ENT: Normal External Ears, Nose and Mouth. Neck: Full range of motion. No meningismus. Resp: Clear to auscultation bilaterally. Cardio: Regular rate and rhythm. Abd: Soft, non distended, normal bowel sounds, non tender. Skin: No petechiae or rashes. Back: No midline or flank tenderness. Ext: No cyanosis, or edema. Neur: Awake and alert. No focal deficit Psych: Normal Mood and Affect. Result Diagram: 03/26/19 0130 03/26/19 0130 Results 24 hrs Laboratory Tests Test 03/26/19 00:19 03/26/19 01:30 03/26/19 02:55 03/26/19 03:57 Bedside Glucose 332 mg/dL 200 mg/dL 165 mg/dL White Blood Count 5.4 10^3/ul Red Blood Count 5.67 10^6/ul Hemoglobin 12.6 g/dl Hematocrit 40.0 % Mean Corpuscular 70.5 fl Volume Mean Corpuscular 22.2 pg Hemoglobin Mean Corpuscular 31.5 g/dl Hemoglobin Concent Red Cell 14.2 % Distribution Width Platelet Count 148 10^3/UL Mean Platelet 12.5 fl Volume Immature 0.200 % Granulocytes % Neutrophils % 32.5 % Lymphocytes % 54.4 % Monocytes % 9.1 % Eosinophils % 3.2 % Basophils % 0.6 % Nucleated Red Blood 0.0 /100WBC Cells % Immature 0.010 10^3/ul Granulocytes # Neutrophils # 1.8 10^3/ul Lymphocytes # 2.9 10^3/ul Monocytes # 0.5 10^3/ul Eosinophils # 0.2 10^3/ul Basophils # 0.0 10^3/ul Nucleated Red Blood 0.0 10^3/ul Cells # Sodium Level 142 mmol/L Potassium Level 4.0 mmol/L Chloride Level 108 mmol/L Carbon Dioxide 26 mmol/L Level Anion Gap 8 Blood Urea Nitrogen 17 mg/dl Creatinine 0.76 mg/dl Est Glomerular mL/min Filtrat Rate mL/min Glucose Level 287 mg/dl Calcium Level 10.0 mg/dl Procedures/MDM EKG: Read by emergency physician Rate/Rhythm: Normal Sinus Rhythm 93 beats/min QRS, ST, T-waves: No ST elevation, nonspecific ST abnormality, LVH Impression: Abnormal EKG MEDICAL MAKING DECISION: The patient is a 74-year-old female, presenting with acute accidental overdose on Humalog. She has been observed in the ER for 6 hours after her Humalog injection. She is awake, alert, able to tolerate p.o. well, she is stable for outpatient follow-up The differential diagnoses considered include but are not limited to anxiety attack, panic attack, electrolyte imbalance Departure Diagnosis: Primary Impression: Accidental overdose Condition: Good Comments I discussed the findings with the patient. I advised the patient to follow-up with the primary physician in about 2-3 days, sooner if needed and return if any concern. Disclaimer: Inadvertent spelling and grammatical errors are likely due to EHR/dictation software use and do not reflect on the overall quality of patient care. Also, please note that the electronic time recorded on this note does not necessarily reflect the actual time of the patient encounter. CASSIDY LOPEZ MD March 26, 2019 01:02
[2019-03-26 05:54] VITALS: BP 122/64; PULSE 90; RESP 21
== END 2019-03-26 06:05 | disposition home or self-care (01) ==
LOC: E/R 00:14
DX: T38.3X1A Poisoning by insulin and oral hypoglycemic [antidiabetic] drugs, accidental (unintentional), initial encounter (principal); J45.909 Unspecified asthma, uncomplicated; I25.10 Atherosclerotic heart disease of native coronary artery without angina pectoris; I10 Essential (primary) hypertension; E11.9 Type 2 diabetes mellitus without complications; Z79.4 Long term (current) use of insulin; Z98.61 Coronary angioplasty status
CPT/HCPCS: 36415; 80048; 82962; 85025; 93005

== ENCOUNTER 2019-04-19 23:03 | Emergency (ER) | payer MEDICARE, OTHER ==
[~2019-04-19] VITALS: Ht 162.6 cm; Wt 82.5 kg
[2019-04-19 23:16] VITALS: Ht 162.6 cm; Wt 82.5 kg
[2019-04-20] MEDS ORDERED: KETOROLAC 30 MG INJ IM STA (03:11)
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
[2019-04-20] MEDS ORDERED: HYDR-3980 PO (05:09)
[2019-04-20 06:00] VITALS: BP 130/67; PULSE 78; RESP 18
== END 2019-04-20 06:15 | disposition home or self-care (01) ==
LOC: E/R 23:03
DX: S09.93XA Unspecified injury of face, initial encounter (principal); S19.9XXA Unspecified injury of neck, initial encounter; S49.92XA Unspecified injury of left shoulder and upper arm, initial encounter; S79.911A Unspecified injury of right hip, initial encounter; J45.909 Unspecified asthma, uncomplicated; E11.9 Type 2 diabetes mellitus without complications; R51 Headache; S59.912A Unspecified injury of left forearm, initial encounter; Y08.89XA Assault by other specified means, initial encounter; Z79.4 Long term (current) use of insulin
CPT/HCPCS: 70450; 72125; 72131; 73510; 96372; 99285; J1885

== ENCOUNTER 2019-06-28 18:59 | Emergency (ER) | payer MEDICARE, OTHER ==
[~2019-06-28] VITALS: Ht 162.6 cm; Wt 72.7 kg
[~2019-06-28 18:59] MED LIST changes: -CEFU500T45 PO; +HYDR-3980 PO
[2019-06-28 19:15] VITALS: Ht 162.6 cm; Wt 72.7 kg
[2019-06-28] MEDS ORDERED: HYDROCODONE/APAP (10/325) TAB PO ONE (23:00)
[2019-06-28] MEDS ORDERED: KETOROLAC 30 MG INJ IM STA (23:07)
[2019-06-29 01:30] VITALS: BP 136/81; PULSE 82; RESP 21
== END 2019-06-29 01:48 | disposition home or self-care (01) ==
LOC: E/R 18:59
DX: R42 Dizziness and giddiness (principal); E11.9 Type 2 diabetes mellitus without complications; J45.909 Unspecified asthma, uncomplicated; Z79.4 Long term (current) use of insulin
CPT/HCPCS: 70450; 80048; 81003; 84484; 85025; 85610; 85730; 93005; 96372; 99285; J1885